=== PATIENT | male | born 1980 | race Caucasian/White ===

== ENCOUNTER → 2017-01-31 | Outpatient (CLI) | payer MEDICAID ==
--- NOTE | ~2017-01-31 | CR242 ---
[facility] A Service of [facility] & [facility] RADIOLOGY TEXT RESULTS PATIENT: ARRON CARDONA LOCATION: [facility] : 80 UNIT #: [id number] AGE: [address]: MISTI QUINTERO SEX: M ORDER DR: [id number] [facility] [address] [place], [place] [address] [id number] O MR#: [id number] Acc #: [id number] NAME: ARRON CARDONA : 1980 SEX: M STUDY DATE/TIME: 01/31/2017 17:59 UNIT: [facility] ROOM: STUDY DESCRIPTION: CR Thoracic Spine 2 Views Attending Physician: Misti Quintero Aprn Ordering Physician: Misti Quintero Aprn Primary Care Physician: No Primary Care Physician MEDICAL IMAGING REPORT This report is preliminary unless electronic signature is present EXAM Thoracic spine series 01/31/2017 HISTORY Pain. Began 4 days ago. No known injury. FINDINGS AP, lateral, and swimmer's views of the thoracic spine are presented. No comparison. No traumatic fracture or malalignment. Vertebral body heights normal. Minimal narrowing of some intervertebral disc space heights. The swimmer's view of the cervicothoracic junction unremarkable. The visualized ribs are intact. The visualized pulmonary parenchyma are notable for calcified granuloma right upper lung zone. Otherwise, clear. Cardiomediastinal contours are normal. Visualized upper abdomen unremarkable. Dictated by... Gaetano Stallings M.D. THIS IS AN ELECTRONICALLY VERIFIED REPORT Gaetano Stallings M.D. at 02/01/2017 6:04 PM Elliott TD: 02/01/2017 11:08 JOB #: [id number] MEDICAL IMAGING REPORT Page 1 of 1 COPY
--- NOTE | ~2017-01-31 | CR181 ---
[facility] A Service of [facility] & [facility] RADIOLOGY TEXT RESULTS PATIENT: ARRON CARDONA LOCATION: [facility] : 80 UNIT #: [id number] AGE: [address]: MISTI QUINTERO SEX: M ORDER DR: [id number] [facility] [address] [place], [place] [address] [id number] O MR#: [id number] Acc #: [id number] NAME: ARRON CARDONA : 1980 SEX: M STUDY DATE/TIME: 01/31/2017 18:00 UNIT: [facility] ROOM: STUDY DESCRIPTION: CR Lumbar Spine 2 or 3 Views Attending Physician: Misti Quintero Aprn Ordering Physician: Misti Quinteor Aprn Primary Care Physician: Primary Care Physician No MEDICAL IMAGING REPORT This report is preliminary unless electronic signature is present EXAM Lumbar spine series 01/31/2017 HISTORY Pain. Began 4 days ago. No known injury. FINDINGS AP and 2 lateral views of the lumbar spine are presented. Normal alignment. No fracture. Vertebral body heights and intervertebral disc space heights are normal. Facet joint relationships are normal. Visualized lower thoracic spine and visualized bony pelvis unremarkable. Visualized bowel gas pattern normal. The visualized lung bases clear. If it would assist in patient management, spinal canal and neural foraminal contents could best be further evaluated with lumbar MRI if patient is candidate for CT. Dictated by... Gaetano Stallings M.D. THIS IS AN ELECTRONICALLY VERIFIED REPORT Gaetano Stallings M.D. at 02/01/2017 6:04 PM Anastasiya TD: 02/01/2017 11:17 JOB #: [id number] MEDICAL IMAGING REPORT Page 1 of 1 COPY
== END | disposition home or self-care (01) ==
LOC: CRAD 16:37
DX: M54.6 Pain in thoracic spine (principal); M54.5 Low back pain
CPT/HCPCS: 72070; 72100